=== PATIENT | female | born 1970 | race Caucasian/White ===

== ENCOUNTER → 2017-10-23 | Outpatient (CLI) | payer BC ==
[2017-10-23 17:59] LABS: BASO # 0.1 10^3/uL (0.0-0.2); BASO % 1.2 % (0.0-1.0); EOS % 0.8 % (0.0-3.0); HEMATOCRIT 40.9 % (36.0-47.0); HEMOGLOBIN 13.4 g/dl (12.0-16.0); IMMATURE GRANULOCYTE % 0.2 % (0-0); LYMPH # 1.4 10^3/uL (1.5-4.5); LYMPH % 26.5 % (24.0-44.0); MEAN CORPUSCULAR HEMOGLOBIN 29.7 pg (27.0-33.0); MEAN CORPUSCULAR HGB CONC 32.8 g/dl (32.0-36.5); MEAN CORPUSCULAR VOLUME 90.7 fl (80.0-96.0); MONO # 0.6 10^3/uL (0.0-0.8); MONO % 11.2 % (0.0-5.0); NEUTROPHILS # 3.1 10^3/uL (1.8-7.7); NEUTROPHILS % 60.1 % (36.0-66.0); PLATELET COUNT, AUTOMATED 241 10^3/uL (150-450); RED BLOOD COUNT 4.51 10^6/uL (4.00-5.40); RED CELL DISTRIBUTION WIDTH 13.2 % (11.5-14.5); WHITE BLOOD COUNT 5.1 10^3/uL (4.0-10.0)
[2017-10-23 18:38] LABS: FREE T4 1.03 NG/DL (0.76-1.46)
[2017-10-23 18:38] LABS: THYROID STIMULATING HORMONE 0.845 uIU/ML (0.358-3.740)
== END ==
LOC: M WUC 13:31
DX: N92.1 Excessive and frequent menstruation with irregular cycle (principal)
CPT/HCPCS: 84443

== ENCOUNTER → 2017-12-10 | Outpatient (CLI) | payer BC ==
[2017-12-10 15:07] LABS: BASO % 0.9 % (0.0-1.0); EOS # 0.1 10^3/uL (0.0-0.50); EOS % 1.7 % (0.0-3.0); HEMATOCRIT 41.3 % (36.0-47.0); HEMOGLOBIN 13.6 g/dl (12.0-16.0); IMMATURE GRANULOCYTE % 0.2 % (0-3.0); LYMPH # 1.4 10^3/uL (1.5-4.5); LYMPH % 30.2 % (24.0-44.0); MEAN CORPUSCULAR HEMOGLOBIN 30.3 pg (27.0-33.0); MEAN CORPUSCULAR HGB CONC 32.9 g/dl (32.0-36.5); MONO # 0.5 10^3/uL (0.0-0.8); MONO % 9.8 % (0.0-5.0); NEUTROPHILS # 2.6 10^3/uL (1.8-7.7); NEUTROPHILS % 57.2 % (36.0-66.0); PLATELET COUNT, AUTOMATED 213 10^3/uL (150-450); RED BLOOD COUNT 4.49 10^6/uL (4.00-5.40); RED CELL DISTRIBUTION WIDTH 12.8 % (11.5-14.5); WHITE BLOOD COUNT 4.6 10^3/uL (4.0-10.0)
[2017-12-10 15:22] LABS: ALBUMIN 4.1 GM/DL (3.2-5.2); ALBUMIN/GLOBULIN RATIO 1.24 (1.00-1.93); ALKALINE PHOSPHATASE 53 U/L (45-117); ALT/SGPT 26 U/L (12-78); ANION GAP 4 MEQ/L (8-16); AST/SGOT 14 U/L (7-37); BILIRUBIN,TOTAL 0.5 MG/DL (0.2-1.0); BLOOD UREA NITROGEN 10 MG/DL (7-18); CALCIUM LEVEL 8.9 MG/DL (8.5-10.1); CARBON DIOXIDE LEVEL 30 MEQ/L (21-32); CHLORIDE LEVEL 106 MEQ/L (98-107); CREATININE FOR GFR 0.74 MG/DL (0.55-1.30); GLOMERULAR FILTRATION RATE > 60.0 (>58); GLUCOSE, FASTING 88 MG/DL (70-100); POTASSIUM SERUM 4.4 MEQ/L (3.5-5.1); RHEUMATOID FACTOR QUANT < 10.0 IU/ML (0-15.0); SODIUM LEVEL 140 MEQ/L (136-145); TOTAL PROTEIN 7.4 GM/DL (6.4-8.2)
[2017-12-10 15:28] LABS: ERYTHROCYTE SEDIMENTATION RATE 3 mm/hr (0-20)
[2017-12-12 14:13] LABS: ANTINUCLEAR ANTIBODIES DIRECT Negative (Negative)
== END ==
LOC: M WUC 13:15
DX: R51 Headache (principal)
CPT/HCPCS: 80053

== ENCOUNTER → 2020-06-29 | Outpatient (CLI) | payer BC ==
[2020-06-29 20:21] LABS: ALBUMIN 3.9 GM/DL (3.2-5.2); CALCIUM LEVEL 8.9 MG/DL (8.5-10.1); MAGNESIUM LEVEL 2.1 MG/DL (1.8-2.4)
[2020-06-29 20:37] LABS: TOTAL 25(OH) VITAMIN D 25.2 NG/ML (30.0-100.0)
[2020-06-29 20:38] LABS: PTH INTACT 113.5 PG/ML (18.5-88.0)
== END ==
LOC: M WUC 17:21
PROVIDERS: ATTEND Family Medicine
DX: E83.52 Hypercalcemia (principal)

== ENCOUNTER 2022-05-21 10:40 | Emergency (ER) | payer BC, MEDICAID, SELFPAY ==
[~2022-05-21] VITALS: Ht 165.1 cm; Wt 89.1 kg
[2022-05-21 10:41] VITALS: BP 137/86
[2022-05-21] MEDS ORDERED: predniSONE 20 MG TAB PO ONE (12:55)
[2022-05-21] MEDS ORDERED: PRED10TA2 PO (12:57)
== END 2022-05-21 13:24 | disposition home or self-care (01) ==
LOC: M ED 10:40
DX: T63.441A Toxic effect of venom of bees, accidental (unintentional), initial encounter (principal); R22.32 Localized swelling, mass and lump, left upper limb; F41.9 Anxiety disorder, unspecified; F33.1 Major depressive disorder, recurrent, moderate; Z88.2 Allergy status to sulfonamides; Z79.899 Other long term (current) drug therapy
CPT/HCPCS: 99282; J7512

== ENCOUNTER → 2023-07-21 | Outpatient (REF) | payer MEDICAID, OTHER ==
[~2023-07-21] MED LIST: PRED10TA2 PO
== END ==
LOC: M LAB REF 13:00
PROVIDERS: ATTEND Physician Assistant Medical
DX: R19.7 Diarrhea, unspecified (principal)

== ENCOUNTER 2023-09-13 10:01 | Day surgery (SDC) | payer OTHER, MEDICAID ==
[~2023-09-13] VITALS: Ht 165.1 cm; Wt 87.6 kg
[~2023-09-13 10:01] MED LIST changes: +ALAV10TA4 PO; +CLONI1TA PO; +DULO1CAP6 PO; +FLON1SPR; +NS 1,000 ML IV ONE; +PANT40TA29 PO; +PROA1AER2 IN
[2023-09-13 11:50] VITALS: TEMP 98.1
[2023-09-13 12:18] VITALS: BP 103/56; O2SAT 97
== END 2023-09-13 12:16 | disposition home or self-care (01) ==
LOC: M OPP 10:01
PROVIDERS: ATTEND Internal Medicine Gastroenterology
DX: D12.5 Benign neoplasm of sigmoid colon (principal); K57.30 Diverticulosis of large intestine without perforation or abscess without bleeding; K64.8 Other hemorrhoids; K63.89 Other specified diseases of intestine; R19.4 Change in bowel habit; R19.7 Diarrhea, unspecified; R12 Heartburn; Z79.1 Long term (current) use of non-steroidal anti-inflammatories (NSAID); Z79.51 Long term (current) use of inhaled steroids; Z79.624 Long term (current) use of inhibitors of nucleotide synthesis; Z79.899 Other long term (current) drug therapy; Z91.030 Bee allergy status; Z91.040 Latex allergy status; Z91.048 Other nonmedicinal substance allergy status; Z88.8 Allergy status to other drugs, medicaments and biological substances

== ENCOUNTER → 2023-12-31 | Outpatient (CLI) | payer OTHER ==
[~2023-12-31] MED LIST changes: -NS 1,000 ML IV ONE
== END ==
LOC: M RAD 13:44
PROVIDERS: ATTEND Physician Assistant Medical
DX: B34.9 Viral infection, unspecified (principal); R06.02 Shortness of breath

== ENCOUNTER → 2024-02-21 | Outpatient (CLI) | payer OTHER | LOC: M RAD 17:29 | PROVIDERS: ATTEND Physician Assistant Medical | DX: R19.8 Other specified symptoms and signs involving the digestive system and abdomen (principal); R14.0 Abdominal distension (gaseous) ==

== ENCOUNTER → 2024-06-14 | Outpatient (REF) | payer OTHER | LOC: M GI 12:17 | PROVIDERS: ATTEND Physician Assistant Medical | DX: R19.7 Diarrhea, unspecified (principal) ==

== ENCOUNTER → 2024-09-15 | Outpatient (CLI) | payer OTHER ==
[~2024-09-15] MED LIST changes: +ISOVUE-370 76% 100ML VIAL As Ordered ONE
== END ==
LOC: M RAD 09:09
PROVIDERS: ATTEND Physician Assistant Medical
DX: R19.7 Diarrhea, unspecified (principal); K57.30 Diverticulosis of large intestine without perforation or abscess without bleeding; K43.9 Ventral hernia without obstruction or gangrene
CPT/HCPCS: 74177; Q9967

== ENCOUNTER 2024-10-05 14:25 | Emergency (ER) | payer OTHER ==
[~2024-10-05] VITALS: Ht 165.1 cm; Wt 90.9 kg
[~2024-10-05 14:25] MED LIST changes: -ISOVUE-370 76% 100ML VIAL As Ordered ONE
[2024-10-05] MEDS ORDERED: CLON-412 (14:38)
[2024-10-05] MEDS ORDERED: IBUP80TA (14:38)
[2024-10-05 15:23] LABS: BASO # 0.1 10^3/uL (0.0-0.2); BASO % 0.6 % (0.0-1.0); EOS # 0.1 10^3/uL (0.0-0.5); EOS % 0.7 % (0.0-3.0); HEMATOCRIT 42.5 % (36.0-47.0); HEMOGLOBIN 13.6 g/dl (12.0-15.5); LYMPH % 9.4 % (24.0-44.0); MEAN CORPUSCULAR HEMOGLOBIN 28.7 pg (27.0-33.0); MEAN CORPUSCULAR VOLUME 89.7 fl (80.0-96.0); MONO # 0.6 10^3/uL (0.0-0.8); MONO % 5.8 % (2.0-8.0); NEUTROPHILS # 8.5 10^3/uL (1.5-8.5); NEUTROPHILS % 83.2 % (36.0-66.0); PLATELET COUNT, AUTOMATED 285 10^3/uL (150-450); RED BLOOD COUNT 4.74 10^6/uL (4.00-5.40); WHITE BLOOD COUNT 10.2 10^3/uL (4.0-10.0)
[2024-10-05] MEDS ORDERED: ISOVUE-370 76% 100ML VIAL As Ordered ONE (15:40)
[2024-10-05 15:52] LABS: LIPASE 38 U/L (12-53)
[2024-10-05 15:54] LABS: AMYLASE 38 U/L (30-118)
[2024-10-05 15:55] LABS: ALBUMIN 3.8 G/DL (3.2-5.2); ALKALINE PHOSPHATASE 95 U/L (35-104); ALT/SGPT 22 U/L (7.0-40); AST/SGOT 14 U/L (<34); BILIRUBIN,DIRECT < 0.1 MG/DL (<0.4); BILIRUBIN,TOTAL 0.3 MG/DL (0.3-1.2); TOTAL PROTEIN 7.6 G/DL (5.7-8.2)
[2024-10-05 17:15] VITALS: O2SAT 98
[2024-10-05] MEDS ORDERED: CEPH500C PO (17:33)
[2024-10-05 17:50] VITALS: TEMP 97.3
[2024-10-05 17:51] VITALS: BP 143/86
[2024-10-05] MEDS: CEPHALEXIN 500 MG CAP PO ONE (17:53)
== END 2024-10-05 18:02 | disposition home or self-care (01) ==
LOC: M ED 14:25
DX: S13.4XXA Sprain of ligaments of cervical spine, initial encounter (principal); S30.1XXA Contusion of abdominal wall, initial encounter; S33.5XXA Sprain of ligaments of lumbar spine, initial encounter; S20.20XA Contusion of thorax, unspecified, initial encounter; S60.552A Superficial foreign body of left hand, initial encounter; V49.40XA Driver injured in collision with unspecified motor vehicles in traffic accident, initial encounter; M25.78 Osteophyte, vertebrae; M25.461 Effusion, right knee; K59.00 Constipation, unspecified; F41.9 Anxiety disorder, unspecified; F32.A Depression, unspecified; I10 Essential (primary) hypertension; K21.9 Gastro-esophageal reflux disease without esophagitis; Z91.030 Bee allergy status; Z91.040 Latex allergy status; Z91.048 Other nonmedicinal substance allergy status; Z79.52 Long term (current) use of systemic steroids; Z79.2 Long term (current) use of antibiotics; Z79.1 Long term (current) use of non-steroidal anti-inflammatories (NSAID); Z79.899 Other long term (current) drug therapy; Y92.410 Unspecified street and highway as the place of occurrence of the external cause; Y93.89 Activity, other specified; Y99.9 Unspecified external cause status
CPT/HCPCS: 36415; 70450; 71260; 72125; 73140; 73564; 74177; 80047; 80076; 82150; 83690; 85025; 86850; 86900; 86901; 93041; 94760; 99284; Q9967

== ENCOUNTER → 2025-04-12 | Outpatient (REF) | payer OTHER ==
[~2025-04-12] MED LIST changes: +CEPH500C PO; +CLON-412; +IBUP80TA
[2025-04-12 17:09] LABS: APPEARANCE, URINE HAZY (CLEAR); BACTERIA, URINE AUTO NEGATIVE (NEGATIVE); BILIRUBIN, URINE AUTO NEGATIVE (NEGATIVE); BLOOD, URINE BLOOD NEGATIVE (NEGATIVE); GLUCOSE, URINE (UA) AUTO NEGATIVE (NEGATIVE); KETONE, URINE AUTO NEGATIVE (NEGATIVE); LEUKOCYTE ESTERASE, URINE AUTO TRACE (NEGATIVE); MUCUS, URINE SMALL (NEGATIVE); NITRITE, URINE AUTO NEGATIVE (NEGATIVE); PROTEIN, URINE AUTO NEGATIVE (NEGATIVE); RBC, URINE AUTO 3 /HPF (0-3); SPECIFIC GRAVITY URINE AUTO 1.017 (1.002-1.035); SQUAMOUS EPITHELIAL CELL UR AU 1 /HPF (0-6); TRANSITIONAL EPITHELIAL AUTO <1 /HPF; UROBILINOGEN, URINE AUTO 0.2 mg/dL (0.0-2.0); WBC, URINE AUTO 3 /HPF (0-3)
== END ==
LOC: M LAB REF 16:43
PROVIDERS: ATTEND Physician Assistant Medical
DX: N39.0 Urinary tract infection, site not specified (principal)